=== PATIENT | female | born 1965 | race Caucasian/White ===

== ENCOUNTER → 2022-01-22 | Outpatient (CLI) | payer OTHER ==
[2022-01-22 13:24] LABS: HEMOGLOBIN 13.3 gm/dl (12.3-15.3); RED BLOOD COUNT 4.43 M/UL (4.00-5.10); WHITE BLOOD COUNT 8.8 K/UL (4.5-11.0)
[2022-01-22 13:47] LABS: BUN/CREATININE RATIO 11 (0-10)
[2022-01-23 08:13] LABS: HBSAG SCREEN Negative (Negative); HCV AB 0.2 (0.0-0.9); HEP A AB, IGM Negative (Negative); HEP B CORE AB, IGM Negative (Negative)
[2022-01-26 20:12] LABS: QUANTIFERON MITOGEN VALUE >10.00 IU/mL (.); QUANTIFERON NIL VALUE 0.09 IU/mL (.); QUANTIFERON TB1 AG VALUE 0.07 IU/mL (.); QUANTIFERON TB2 AG VALUE 0.06 IU/mL (.); QUANTIFERON-TB GOLD PLUS Negative (Negative)
== END ==
LOC: RAD 11:50
PROVIDERS: Internal Medicine
DX: D89.9 Disorder involving the immune mechanism, unspecified (principal); M25.511 Pain in right shoulder; M25.542 Pain in joints of left hand; M25.541 Pain in joints of right hand; R53.83 Other fatigue; Z79.899 Other long term (current) drug therapy; M19.042 Primary osteoarthritis, left hand; M19.041 Primary osteoarthritis, right hand; M19.011 Primary osteoarthritis, right shoulder
CPT/HCPCS: 36415; 71046; 73030; 73120; 80053; 80074; 81001; 85025; 85652; 86038; 86140; 86200; 86430; 86431